=== PATIENT | male | born 1985 | race Caucasian/White ===

== ENCOUNTER 2022-05-09 11:49 | Emergency (ER) | payer SELFPAY ==
[~2022-05-09] VITALS: Ht 182.9 cm; Wt 86.2 kg
[2022-05-09 12:04] VITALS: BP 137/92
--- NOTE | 2022-05-09 12:06 | NUR ---
36 y/o female bib self from home, pt presents to ed with c/o bright red rectal bleeding with bm, nausea and back pain for 1 week. pt states he also has been having limited rom with bending. 1010 pain. pmh: denies nka med: denies
--- NOTE | 2022-05-09 12:47 | NUR ---
no answer at this time per lab.
== END 2022-05-09 12:47 | disposition left against medical advice (07) ==
LOC: MED 11:49
DX: K62.5 Hemorrhage of anus and rectum (principal); Z53.21 Procedure and treatment not carried out due to patient leaving prior to being seen by health care provider